=== PATIENT | female | born 1950 | race Caucasian/White ===

== ENCOUNTER 2018-10-16 17:54 | Emergency (ER) | payer MEDICARE, BC ==
[2018-10-16] MEDS ORDERED: MELOXICAM 7.5 MG TABLET PO STA (18:23)
--- NOTE | 2018-10-16 19:14 | XRAY Report ---
Reason: fall, L leg pain Procedure Date: 10/16/2018 Accession Number: [id number] / [id number] Procedure: XR - Tib/Fib LT CPT Code: FULL RESULT: EXAM: LEFT TIBIA/FIBULA RADIOGRAPHY EXAM DATE: 10/16/2018 06:54 PM. CLINICAL HISTORY: Fall, L leg pain. COMPARISON: None. TECHNIQUE: 3 views. FINDINGS: Bones: Acute mildly (5 mm) displaced oblique fracture through the neck and proximal shaft of the left fibula. Possible medial tibial plateau fracture. Joints: The visualized knee and ankle joints are normal. No effusions. Soft Tissues: Normal. No soft tissue swelling. IMPRESSION: 1. Mildly displaced oblique fracture through the neck and proximal shaft of the left fibula. 2. Possible left medial tibial plateau fracture. Recommend dedicated knee radiographs or CT. RADIA
[2018-10-16] MEDS ORDERED: oxyCODONE 5 MG TABLET PO STA (19:41)
--- NOTE | 2018-10-16 20:33 | ED Physician Documentation ---
PD HPI LOWER EXT INJURY - Stated complaint Stated Complaint: GLF, LEG PX - Chief complaint Chief Complaint: Trauma Ext - History obtained from History obtained from: Patient, Family - History of Present Illness PD HPI LOW EXT INJURY LOCATION: Left, Lower leg Type of injury: Fall, Twist Where injury occurred: Home Timing - onset: How many hours ago (1) Timing - details: Abrupt onset Pain level max: 10 Pain level now: 6 Improved by: Rest, Ice, Immobilization Worsened by: Moving, Palpating Associated symptoms: No: Weakness, Numbness, Tingling, Swelling Contributing factors: No: Anticoagulated, Prior ortho surgery Recently seen: Not recently seen Review of Systems Constitutional: denies: Fever, Chills Respiratory: denies: Cough GI: denies: Vomiting Skin: denies: Rash Musculoskeletal: denies: Neck pain, Back pain Neurologic: denies: Seizure, Confused, Headache PD PAST MEDICAL HISTORY - Past Medical History Past Medical History: No - Past Surgical History Past Surgical History: No - Present Medications Home Medications: Ambulatory Orders Medication Instructions Recorded Confirmed Estradiol 10/16/18 Oxycodone HCl/Acetaminophen 1 - 2 each PO Q6H PRN #14 tablet 10/16/18 [Percocet 5-325 mg Tablet] - Allergies Allergies/Adverse Reactions: Allergies Allergy/AdvReac Type Severity Reaction Status Date / Time No Known Drug Allergies Allergy Verified 10/16/18 18:04 - Social History Does the pt smoke?: No Smoking Status: Never smoker Does the pt drink ETOH?: No Does the pt have substance abuse?: No PD ED PE NORMAL - Vitals Vital signs reviewed: Yes - General General: Alert and oriented X 3, No acute distress, Well developed/nourished - HEENT HEENT: Atraumatic, PERRL, Moist mucous membranes - Neck Neck: Supple, no meningeal sign, No bony TTP - Cardiac Cardiac: RRR, Strong equal pulses - Respiratory Respiratory: No respiratory distress, Clear bilaterally - Abdomen Abdomen: Soft, Non tender, Non distended - Back Back: No spinal TTP - Derm Derm: Warm and dry - Extremities Extremities: Other (L leg - TTP mid and proximal fibula. mild decreased sensation over the lateral aspect of the leg. otherwise NVI. no deformity of the ankle. ) - Neuro Neuro: Alert and oriented X 3 - Psych Psych: Normal mood, Normal affect Results - Vitals Vitals: Vital Signs - 24 hr 10/16/18 10/16/18 17:56 20:41 Temperature 36.5 C 36.6 C Heart Rate 63 65 Respiratory 14 18 Rate Blood Pressure 140/82 H 127/72 O2 Saturation 100 97 Oxygen O2 Source Room air - Rads (name of study) L tib fib xray Radiology: Prelim report reviewed, EMP read contemporaneously, See rad report (Mildly displaced oblique fracture through the neck and proximal shaft of the left fibula. 2. Possible left medial tibial plateau fracture. Recommend dedicated knee radiographs or CT. ) L knee xray Radiology: Prelim report reviewed, EMP read contemporaneously, See rad report (Nondisplaced oblique proximal fibular shaft fracture 5.3 cm in length with 4 mm offset. Negative for proximal tibia fracture. Negative for knee joint fluid. ) Procedures - Splint (location) L leg Splint applied by: Physician Type of splint: Fiberglass, Long leg, Posterior Other: Patient tolerated well, No complications, Neurovascular intact, Crutches provided (walker) PD MEDICAL DECISION MAKING - ED course Complexity details: reviewed results, re-evaluated patient, considered differential, d/w patient, d/w family ED course: 67-year-old female presents with a left proximal fibula fracture. Question of medial tibial plateau fracture on the same side, this is not evident on CT. Placed in a long-leg posterior splint will follow up with orthopedics. Pain well controlled. Neurovascular intact patient counseled regarding signs and symptoms for which I believe and urgent re-evaluation would be necessary. Patient with good understanding of and agreement to plan and is comfortable go ing home at this time This document was made in part using voice recognition software. While efforts are made to proofread this document, sound alike and grammatical errors may occur. Departure - Departure Disposition: 01 Home, Self Care Clinical Impression: Fracture of proximal end of fibula Qualifiers: Encounter type: initial encounter Fracture type: closed Fracture morphology: torus Laterality: left Qualified Code(s): S82.812A - Torus fracture of upper end of left fibula, initial encounter for closed fracture Condition: Good Instructions: ED Fx Lower Ext Follow-Up: [facility] [Provider Group] - Within 1 week Prescriptions: Oxycodone HCl/Acetaminophen [Percocet 5-325 mg Tablet] 1 - 2 each PO Q6H PRN #14 tablet PRN Reason: pain Comments: Return if you worsen. Follow-up with orthopedics for further care. Do not apply any weight to that left leg. Stay in the splint until released by orthopedics. Do not drink alcohol or drive while on narcotic pain medicine. Note that many narcotic pain relievers also contain tylenol/acetaminophen. Please ensure that your total dose of acetaminophen from all sources does not exceed 3 grams (3000mg) per day. You may constipated on this medication, take a stool softener such as "Colace" twice a day while you are on it. Also recommend a [id number] laxative such as senna or MiraLAX any day that you do not have a bowel movement. If you received narcotic pain medication in the emergency department, do not drive or operate machinery for the next 24 hours. Discharge Date/Time: 10/16/18 20:46
[2018-10-16 20:42] VITALS: BP 127/72
--- NOTE | 2018-10-16 20:54 | CT Report ---
Reason: poss L medial tibial plateau fracture Procedure Date: 10/16/2018 Accession Number: [id number] / [id number] Procedure: CT - Lower Extremity Left W/O CPT Code: FULL RESULT: EXAM: LEFT KNEE CT WITHOUT CONTRAST EXAM DATE: 10/16/2018 08:18 PM. CLINICAL HISTORY: Possible left medial tibial plateau fracture. COMPARISON: LEG LOWER LT 10/16/2018 6:36 PM. TECHNIQUE: Thin-section axial images were acquired of the knee without contrast. Post-processing: Coronal and sagittal reformats. Other: None. In accordance with CT protocol optimization, one or more of the following dose reduction techniques were utilized for this exam: automated exposure control, adjustment of mA and/or KV based on patient size, or use of iterative reconstructive technique. FINDINGS: Bones: Oblique fracture is seen of the proximal fibula shaft measuring 5.3 cm in length with 4 mm offset. Negative for proximal tibia fracture. Joints: Negative for knee joint fluid. Musculature: Negative for atrophy or edema. Other: No Bakers cyst. No soft tissue swelling. IMPRESSION: 1. Nondisplaced oblique proximal fibular shaft fracture 5.3 cm in length with 4 mm offset. 2. Negative for proximal tibia fracture. 3. Negative for knee joint fluid. RADIA
== END 2018-10-16 20:46 | disposition home or self-care (01) ==
LOC: ED 17:54
DX: S82.812A Torus fracture of upper end of left fibula, initial encounter for closed fracture (principal); W00.0XXA Fall on same level due to ice and snow, initial encounter; Y93.K1 Activity, walking an animal; Y92.007 Garden or yard of unspecified non-institutional (private) residence as the place of occurrence of the external cause
CPT/HCPCS: 29505; 73590; 73700; 99283; A9270

== ENCOUNTER 2019-03-12 11:07 | Outpatient (CLI) | payer MEDICARE, BC | END 2019-03-12 11:08 | disposition home or self-care (01) | LOC: LAB 11:07 | PROVIDERS: ATTEND Otolaryngology | DX: E21.0 Primary hyperparathyroidism (principal) | CPT/HCPCS: 36415; 82310 ==

== ENCOUNTER 2021-06-29 13:12 | Outpatient (CLI) | payer MEDICARE, BC | END 2021-06-29 13:13 | disposition home or self-care (01) | LOC: COV 13:12 | PROVIDERS: ATTEND Internal Medicine | DX: Z01.812 Encounter for preprocedural laboratory examination (principal); Z20.822 Contact with and (suspected) exposure to COVID-19 ==

== ENCOUNTER 2023-06-07 10:20 | Emergency (ER) | payer MEDICARE, BC ==
[2023-06-07 10:31] VITALS: O2SAT 100
--- NOTE | 2023-06-07 10:55 | XRAY Report ---
PROCEDURE: Chest 1 View X-Ray INDICATIONS: Chest pain TECHNIQUE: One view of the chest was acquired. COMPARISON: None. FINDINGS: Surgical changes and devices: None. Lungs and pleura: No pleural effusions or pneumothorax. Lungs are clear. Mediastinum: Mediastinal contours appear normal. Heart size is normal. Bones and chest wall: No suspicious bony lesions. Overlying soft tissues appear unremarkable. IMPRESSION: No acute cardiopulmonary process. Reviewed by: Donnell Crabtree MD on 06/07/2023 10:53 AM PDT Approved by: Donnell Crabtree MD on 06/07/2023 10:53 AM PDT Station ID: [id number]
[2023-06-07 11:34] LABS: BASOPHILS % (AUTO) 0.5 %; EOSINOPHILS # (AUTO) 0.3 10^3/uL (0.0-0.7); EOSINOPHILS % (AUTO) 3.4 %; HGB - HEMOGLOBIN 13.6 g/dL (12.0-16.0); LYMPHOCYTES # (AUTO) 2.3 10^3/uL (1.5-3.5); LYMPHOCYTES % (AUTO) 29.4 %; MEAN CORPUSCULAR HGB CONC 33.2 g/dL (32.0-36.0); MEAN CORPUSCULAR VOLUME 99.5 fL (81.0-99.0); MEAN PLATELET VOLUME 12.4 fL (7.9-10.8); MONOCYTES # (AUTO) 0.7 10^3/uL (0.0-1.0); MONOCYTES % (AUTO) 9.5 %; NEUTROPHILS # (AUTO) 4.4 10^3/uL (1.5-6.6); NEUTROPHILS % (AUTO) 56.8 %; PLT - PLATELET COUNT 70 10^3/uL (130-450); RED BLOOD COUNT 4.12 10^6/uL (4.20-5.40); RED CELL DISTRIBUTION WIDTH 12.5 % (12.0-15.0); WHITE BLOOD COUNT 7.7 x10^3/uL (4.8-10.8)
[2023-06-07 11:37] LABS: SLIDE REVIEW? Indicated
[2023-06-07 11:43] VITALS: BP 126/73
[2023-06-07 11:51] LABS: PLATELET MORPHOLOGY PLATELET CLUMPING (NORMAL)
[2023-06-07 12:18] LABS: ALBUMIN 4.4 g/dL (3.2-5.5); ALBUMIN/GLOBULIN RATIO 1.8 (1.0-2.2); BILIRUBIN,TOTAL 0.4 mg/dL (0.2-1.0); CREATININE 0.6 mg/dL (0.6-1.3); POTASSIUM 3.6 mmol/L (3.5-4.5); TOTAL PROTEIN 6.8 g/dL (6.4-8.9)
--- NOTE | 2023-06-07 12:24 | ED Physician Documentation ---
"PD HPI CHEST PAIN - Stated complaint Stated Complaint: CHEST PX - Chief complaint Chief Complaint: Cardiac - History obtained from History obtained from: Patient - Additional information Additional information: 72yoF with PMH parathyroid disease, HTN presents by private vehicle for R sided chest pain and L dental pain that she noticed when she woke up this morning. Reports family hx of heart disease but no personal history of heart problems. Cannot identify what makes the pain better or worse. No medications taken at home prior to arrival. Review of Systems Constitutional: denies: Fever, Chills Throat: reports: Dental pain / toothache Cardiac: reports: Chest pain / pressure. denies: Palpitations, Calf pain Respiratory: denies: Dyspnea, Cough, Wheezing : denies: Dysuria, Frequency, Hesitancy PD PAST MEDICAL HISTORY - Past Surgical History Past Surgical History: No - Present Medications Home Medications: Ambulatory Orders Medication Instructions Recorded Confirmed Oxycodone HCl/Acetaminophen 1 - 2 each PO Q6H PRN #14 tablet 10/16/18 [Percocet 5-325 mg Tablet] estradioL [Estradiol] 10/16/18 - Allergies Allergies/Adverse Reactions: Allergies Allergy/AdvReac Type Severity Reaction Status Date / Time No Known Drug Allergies Allergy Verified 10/16/18 18:04 - Social History Does the pt smoke?: No Smoking Status: Never smoker Does the pt drink ETOH?: No Does the pt have substance abuse?: No PD ED PE NORMAL - Vitals Vital signs reviewed: Yes - General General: Alert and oriented X 3, No acute distress, Well developed/nourished - HEENT HEENT: Atraumatic - Neck Neck: Supple, no meningeal sign, No bony TTP - Cardiac Cardiac: RRR, Strong equal pulses, Other (R sided chest pain to palpation) - Respiratory Respiratory: No respiratory distress, Clear bilaterally - Abdomen Abdomen: Soft, Non tender, Non distended - Back Back: No CVA TTP - Derm Derm: Normal color, Warm and dry, No rash - Extremities Extremities: No deformity, No edema - Neuro Neuro: Alert and oriented X 3, leather belt shaper 2-12 intact, No motor deficit, Normal speech - Psych Psych: Normal mood, Normal affect Results - Vitals Vitals: Oxygen O2 Source Room air - EKG (time done) 1048 EKG releavant findings:: EKG personally interpreted by author of this note. Relevant findings are: Rate: Rate (enter#) (55) Rhythm: Sinus bradycardia [place]: Normal Intervals: Normal MT QRS: Normal Ischemia: Normal ST segments - Labs Labs: Laboratory Tests 06/07/23 06/07/23 06/07/23 11:29 11:29 11:43 WBC 7.7 RBC 4.12 L Hgb 13.6 Hct 41.0 MCV 99.5 H MCH 33.0 H MCHC 33.2 RDW 12.5 Plt Count 70 L MPV 12.4 H Neut # (Auto) 4.4 Lymph # (Auto) 2.3 [place] # (Auto) 0.7 Eos # (Auto) 0.3 Baso # (Auto) 0.0 Absolute Nucleated RBC 0.00 Nucleated RBC % 0.0 Manual Slide Review Indicated Platelet Morphology PLATELET CLUMPING Sodium 141 Potassium 3.6 Chloride 108 Carbon Dioxide 27 Anion Gap 6.0 BUN 20 Creatinine 0.6 Estimated GFR (MDRD) 99 Glucose 86 Calcium 10.0 Total Bilirubin 0.4 AST 15 ALT 13 Alkaline Phosphatase 78 Troponin I High Sens 3.8 Total Protein 6.8 Albumin 4.4 Globulin 2.4 Albumin/Globulin Ratio 1.8 Lipase 42 PD Medical Decision Making - ED course Complexity details: reviewed results, re-evaluated patient, considered differential, d/w patient ED course: Well appearing patient with reproducible chest pain to palpation. Moderate dental caries and periodontal disease. EKG NSR without ischemic findings. |Troponin negative. CXR negative. Heart score 3 (age, risk factor HTN). Patient reassured, she will follow up with PCP. She states she already had routine cardiology follow up assigned by her PCP. Departure - Departure Disposition: 01 Home, Self Care Clinical Impression: Chest pain Qualifiers: Chest pain type: unspecified Qualified Code(s): R07.9 - Chest pain, unspecified Condition: Stable Instructions: ED Chest Pain Atypical Unkn Cause Comments: MAKE SURE TO FOLLOW UP WITH A RADIOSONDE SPECIALIST. YOUR LABS, EKG, AND CHEST X RAY WERE NORMAL. Forms: PCP List Discharge Date/Time: 06/07/23 12:48"
== END 2023-06-07 12:48 | disposition home or self-care (01) ==
LOC: ED 10:20
DX: R07.9 Chest pain, unspecified (principal); K02.9 Dental caries, unspecified; K05.6 Periodontal disease, unspecified
CPT/HCPCS: 36415; 80053; 83690; 84484; 85025; 93005; 99283; 99284